=== PATIENT | male | born 1965 | race Caucasian/White ===

== ENCOUNTER 2019-09-03 13:00 | Emergency (ER) | payer BC ==
--- NOTE | 2019-09-03 14:23 | EDPHYS ---
Physician Documentation [facility] Name: Fuad Bey Age: 53 yrs Sex: Male : 1965 Arrival Date: 09/03/2019 Time: 13:07 Bed 20 Private MD: ED Physician George Rojo HPI: 09/03 13:55 This 53 yrs old Male presents to ER via Ambulatory with complaints of jmm Headache, Sinus Congestion, Sore Throat. 13:55 The patient or guardian reports cough. Onset: The symptoms/episode began/occurred jmm gradually, 1 day(s) ago. Modifying factors: The symptoms are alleviated by nothing. the symptoms are aggravated by nothing. Associated signs and symptoms: Pertinent positives: rhinorrhea, sore throat, Pertinent negatives: diarrhea, vomiting. This is a 53 year old male with a history of colon cancer that presents to the ED with complaints of cough, congestion ,sore throat, headache beginning approx 1 day ago. Denies fever or chills. . Historical: - Allergies: 13:14 PENICILLINS; jl7 - Home Meds: 13:14 None [Active]; jl7 - PMHx: 13:14 colon cancer; jl7 - PSHx: 13:14 colon resection; jl7 - Immunization history:: Adult Immunizations not up to date. - Social history:: Smoking status: Patient/guardian denies using tobacco. - Ebola Screening: : No symptoms or risks identified at this time. ROS: 13:55 Constitutional: Negative for fever, chills, and weight loss. jmm 13:55 ENT: Positive for sinus congestion, sore throat. 13:55 Respiratory: Positive for cough. 13:55 Abdomen/GI: Negative for abdominal pain, nausea and vomiting, diarrhea. 13:55 Neuro: Positive for headache. 13:55 All other systems are negative. Exam: 13:55 Constitutional: This is a well developed, well nourished patient who is awake, alert, jmm and in no acute distress. Head/Face: atraumatic. Eyes: EOMI, no conjunctival erythema appreciated ENT: Moist Mucus Membranes Neck: Trachea midline, Supple Chest/axilla: Normal chest wall appearance and motion. Cardiovascular: Regular rate and rhythm. No edema appreciated Respiratory: Normal respirations, no respiratory distress appreciated Abdomen/GI: Non distended, soft Back: Normal ROM Skin: General appearance color normal MS/ Extremity: Moves all extremities, no obvious deformities appreciated, no edema noted to the lower extremities Neuro: Awake and alert, normal gait Psych: Behavior is normal, Mood is normal, Patient is cooperative and pleasant 13:55 Cardiovascular: Rate: normal, Rhythm: regular, Pulses: no pulse deficits are appreciated. 13:55 Respiratory: the patient does not display signs of respiratory distress, Respirations: normal, Breath sounds: are clear throughout. Vital Signs: 13:14 BP 136 / 102; Pulse 66; Resp 19 S; Temp 98.6(O); Pulse Ox 97% on R/A; Weight 91.63 kg jl7 (R); Height 6 ft. 2 in. (187.96 cm) (R); Pain 2/10; 13:14 Body Mass Index 25.93 (91.63 kg, 187.96 cm) jl7 MDM: 13:50 Patient medically screened. [facility] 14:20 Data reviewed: vital signs, nurses notes. Counseling: I had a detailed discussion with [facility] the patient and/or guardian regarding: the historical points, exam findings, and any diagnostic results supporting the discharge/admit diagnosis, lab results, the need for outpatient follow up, to return to the emergency department if symptoms worsen or persist or if there are any questions or concerns that arise at home. ED course: Patient is alert and non toxic in appearance in the ED. Advised to follow up with pcp and otherwise given strict return precautions. patient understood and agrees with the plan of care. . 09/03 13:16 Order name: Flu [facility] 09/03 13:16 Order name: Strep; Complete Time: 13:51 [facility] 09/03 13:17 Order name: Influenza Screen (A ; Complete Time: 14:15 [facility] 09/03 13:47 Order name: Throat Culture EDIL Administered Medications: 14:25 Drug: Decadron 10 mg Route: IM; Site: left deltoid; iw Disposition: 15:10 Co-signature as Attending Physician, George Rojo MD I agree with the assessment and kdr plan of care. Disposition: 09/03/19 14:22 Discharged to Home. Impression: Acute upper respiratory infection, unspecified, Acute pharyngitis. - Condition is Stable. - Discharge Instructions: Pharyngitis. - Prescriptions for Zithromax Z- Keith 250 mg Oral Tablet - take 1 tablet by ORAL route as directed for 5 days Day 1 - take two (2) tablets one time. Day 2, 3, 4 , 5 take one (1) tablet once daily.; 6 tablet. - Medication Reconciliation Form, Thank You Letter, Antibiotic Education, Prescription Opioid Use form. - Follow up: Private Physician; When: 2 - 3 days; Reason: Recheck today's complaints, Continuance of care, Re-evaluation by your physician. Signatures: Dispatcher [employer] EDGeorge Lucas MD MD kdr Mickail, Joel, PA PA jmm Williams, Irene, RN RN iw Rik Leary RN RN jl7 Corrections: (The following items were deleted from the chart) 14:34 14:22 09/03/2019 14:22 Discharged to Home. Impression: Acute upper respiratory iw infection, unspecified; Acute pharyngitis. Condition is Stable. Forms are Medication Reconciliation Form, Thank You Letter, Antibiotic Education, Prescription Opioid Use. Follow up: Private Physician; When: 2 - 3 days; Reason: Recheck today's complaints, Continuance of care, Re-evaluation by your physician. ron
--- NOTE | 2019-09-03 14:23 | ER ---
Nurse's Notes [facility] Name: Fuad Bey Age: 53 yrs Sex: Male : 1965 Arrival Date: 09/03/2019 Time: 13:07 Bed 20 Private MD: Diagnosis: Acute upper respiratory infection, unspecified;Acute pharyngitis Presentation: 09/03 13:12 Presenting complaint: Patient states: Cough, IVERSON, sore throat x 1 day. Transition of [facility] care: patient was not received from another setting of care. Onset of symptoms was September 02, 2019. Risk Assessment: Do you want to hurt yourself or someone else? Patient reports no desire to harm self or others. Initial Sepsis Screen: Does the patient meet any 2 criteria? No. Patient's initial sepsis screen is negative. Does the patient have a suspected source of infection? No. Patient's initial sepsis screen is negative. Care prior to arrival: None. 13:12 Method Of Arrival: Ambulatory [facility] 13:12 Acuity: JA 4 [facility] Triage Assessment: 13:14 Headache History: The patient has had previous headaches and this one is similar to 7 previous episodes. General: Appears in no apparent distress. uncomfortable, Behavior is calm, cooperative, appropriate for age. Pain: Complains of pain in IVERSON Pain does not radiate. Pain currently is 2 out of 10 on a pain scale. Pain began 1 day ago. Also complains of no other associated symptoms. EENT: Throat is clear. Neuro: Level of Consciousness is awake, alert, obeys commands, Oriented to person, place, time, situation. Historical: - Allergies: 13:14 PENICILLINS; jl7 - Home Meds: 13:14 None [Active]; jl7 - PMHx: 13:14 colon cancer; jl7 - PSHx: 13:14 colon resection; jl7 - Immunization history:: Adult Immunizations not up to date. - Social history:: Smoking status: Patient/guardian denies using tobacco. - Ebola Screening: : No symptoms or risks identified at this time. Screenin:00 Abuse screen: Denies threats or abuse. Nutritional screening: No deficits noted. em Tuberculosis screening: No symptoms or risk factors identified. Fall Risk None identified. Assessment: 14:00 General: Appears in no apparent distress. Behavior is calm, cooperative. Pain: iw Complains of pain in throat. Neuro: Level of Consciousness is awake, alert, obeys commands, Oriented to person, place, time, situation. Cardiovascular: Patient's skin is warm and dry. Respiratory: Respiratory effort is even, unlabored, Respiratory pattern is regular, symmetrical. Derm: Skin is intact, is healthy with good turgor. Musculoskeletal: Range of motion: intact in all extremities. Vital Signs: 13:14 BP 136 / 102; Pulse 66; Resp 19 S; Temp 98.6(O); Pulse Ox 97% on R/A; Weight 91.63 kg 7 (R); Height 6 ft. 2 in. (187.96 cm) (R); Pain 2/10; 13:14 Body Mass Index 25.93 (91.63 kg, 187.96 cm) 7 ED Course: 13:07 Patient arrived in ED. mr 13:13 Triage completed. [facility] 13:14 Arm band placed on right wrist. [facility] 13:16 Chris Ramirez PA is PHCP. [facility] 13:16 George Rojo MD is Attending Physician. [facility] 14:00 Frantz Tineo, RN is Primary Nurse. em 14:00 Patient has correct armband on for positive identification. Bed in low position. Call em light in reach. Adult w/ patient. 14:34 No provider procedures requiring assistance completed. Patient did not have IV access iw during this emergency room visit. Administered Medications: 14:25 Drug: Decadron 10 mg Route: IM; Site: left deltoid; iw Outcome: 14:22 Discharge ordered by MD. [facility] 14:34 Discharged to home ambulatory, with family. iw 14:34 Condition: good 14:34 Discharge instructions given to patient, family, Instructed on discharge instructions, follow up and referral plans. medication usage, Demonstrated understanding of instructions, follow-up care, medications, Prescriptions given X 1. 14:34 Patient left the ED. Signatures: Chris Ramirez PA PA [facility] QuesadaDaylin Frantz Tineo, RN RN em Roberta Do RN RN iw Rik Leary RN RN jl7
[2019-09-03] MEDS ORDERED: dexAMETHasone 10 MG/ML VIAL ONE (14:31)
[2019-09-03 14:39] VITALS: BP 136/102; TEMP 98.6; O2SAT 97
== END 2019-09-03 14:34 | disposition home or self-care (01) ==
LOC: ER 13:00
DX: J02.9 Acute pharyngitis, unspecified (principal); Z88.0 Allergy status to penicillin; Z85.038 Personal history of other malignant neoplasm of large intestine
CPT/HCPCS: 87070; 87081; 87804 ×2; 96372; 99283; J1100